=== PATIENT | female | born 1975 | race Two or more races ===

== ENCOUNTER 2017-05-06 01:28 | Emergency (ER) | payer MEDICAID ==
[~2017-05-06] VITALS: Ht 157.5 cm; Wt 84.1 kg
[~2017-05-06 01:28] MED LIST: PREN1TAB52 PO
[2017-05-06] MEDS ORDERED: BACITRACIN 0.9 GM PACKET OINTMENT TP ONE (03:00)
[2017-05-06] MEDS ORDERED: TraMADol HCL 50 MG TABLET PO ONE (03:15)
[2017-05-06] MEDS ORDERED: KETOROLAC TROMETHAMINE 60 MG/2 ML VIAL IM ONE (03:15)
[2017-05-06 04:18] VITALS: BP 130/77
== END 2017-05-06 04:56 | disposition home or self-care (01) ==
LOC: EMS 01:30
DX: R07.89 Other chest pain (principal)
CPT/HCPCS: 71010; 93005; 96372; 99284; J1885